=== PATIENT | male | born 1975 | race Caucasian/White ===

== ENCOUNTER 2020-06-26 15:55 | Emergency (ER) | payer MEDICAID ==
[~2020-06-26] VITALS: Ht 175.3 cm; Wt 113.6 kg
[2020-06-26] MEDS ORDERED: ACET-2247 PO (16:00)
[2020-06-26] MEDS ORDERED: KETOROLAC TROMETHAMINE 30 MG/ML VIAL IM ONE (17:15)
[2020-06-26 20:30] VITALS: BP 118/75
== END 2020-06-26 21:02 | disposition home or self-care (01) ==
LOC: EMS 15:55
DX: S52.572A Other intraarticular fracture of lower end of left radius, initial encounter for closed fracture (principal); W01.0XXA Fall on same level from slipping, tripping and stumbling without subsequent striking against object, initial encounter; Y93.01 Activity, walking, marching and hiking; Y92.096 Garden or yard of other non-institutional residence as the place of occurrence of the external cause; Y99.8 Other external cause status
CPT/HCPCS: 29125; 73110; 73130; 96372; 99284; J1885